=== PATIENT | female | born 1965 | race Caucasian/White ===

== ENCOUNTER 2018-07-19 11:18 | Day surgery (SDC) | payer OTHER ==
[2018-07-19] VITALS (13 sets, daily range): BP systolic 83–119; BP diastolic 40–84; PULSE 60–77; RESP 12–18; Ht 149.9 cm; Wt 71.9 kg
[~2018-07-19] VITALS: Ht 149.9 cm; Wt 71.9 kg
[2018-07-19] MEDS ORDERED: PRAV40TA76 PO (11:51)
[2018-07-19] MEDS ORDERED: HYDR25TA6 PO (11:52)
[2018-07-19] MEDS ORDERED: ATOR40TA68 PO (11:52)
[2018-07-19] MEDS ORDERED: AMLO-147 PO (11:53)
[2018-07-19] MEDS ORDERED: METF100010 PO (11:53)
[2018-07-19] MEDS ORDERED: ASPI81TA52 PO (11:54)
[2018-07-19] MEDS ORDERED: LISI40TA3 PO (11:55)
[2018-07-19] MEDS ORDERED: GLUCOSE GEL 15 GRAM TUBE BUCCAL PRN (12:30)
[2018-07-19] MEDS ORDERED: GLUCAGON 1 MG INJ IM PRN (12:30)
[2018-07-19] MEDS ORDERED: DEXTROSE 50% 50 ML SYRINGE IV PRN ×2 (12:30)
[2018-07-19] MEDS ORDERED: GLUCOSE GEL 15 GRAM TUBE PO PRN ×2 (12:30)
[2018-07-19] MEDS ORDERED: INSULIN ASPART [NOVOLOG] 3 ML PEN IV ONE (12:30)
[2018-07-19] MEDS ORDERED: CEFAZOLIN 2 GM/50 ML (PMX) 50 ML IVPB ONE (14:30)
--- NOTE | 2018-07-19 15:17 | HPN ---
Date/Time of Note Date/Time of Note DATE: 07/19/18 TIME: 15:17 Interval H&P Admission Note Pt. seen H&P reviewed: No system changes ROXIE MADRIGAL MD Jul 19, 2018 15:17
--- NOTE | 2018-07-19 15:27 | PREAC ---
Date/Time of Note Date/Time of Note DATE: 07/19/18 TIME: 15:25 Anesthesia Eval and Record Evaluation Time Pre-Procedure Interview DATE: 07/19/18 TIME: 15:25 Age 53 Sex female NPO: 8 hrs Preoperative diagnosis back and buttock masses Planned procedure excision of back and buttock masses Past Medical History Past Medical History: Includes Cardio: HTN, Dyslipidemia Endo: Diabetes GI: Obesity Surgery & Anesthesia Issues No known issue Meds Anticoagulation: No Beta Shanique within 24 hr: No Reason Beta Shanique not given: Pt. not on B-Shanique Reported Medications Lisinopril* (Lisinopril*) 40 Mg Tablet, 40 MG PO DAILY, #30 TAB 07/19/18 Aspirin (Low Dose Aspirin) 81 Mg Tablet.dr, 81 MG PO DAILY, #30 TAB 07/19/18 Metformin Hcl* (Metformin Hcl*) 1,000 Mg Tablet, 1000 MG PO WITH BREAKFAST DINNE, #60 TAB 07/19/18 Amlodipine Besylate* (Amlodipine Besylate*) 10 Mg Tablet, 10 MG PO DAILY, #30 TAB 07/19/18 Hydrochlorothiazide* (Hydrochlorothiazide*) 25 Mg Tab, 25 MG PO DAILY, #30 TAB 07/19/18 Atorvastatin* (Atorvastatin*) 40 Mg Tablet, 40 MG PO QHS, #30 TAB 07/19/18 Discontinued Reported Medications Pravastatin Sodium* (Pravastatin Sodium*) 40 Mg Tablet, 40 MG PO HS, TAB 07/19/18 Current Medications Miscellaneous Information 1 ea NOTE XX ; Start 07/19/18 at 12:30 Glucose (Glutose) 15 gm Q15M PRN PO DECREASED GLUCOSE; Start 07/19/18 at 12:30 Glucose (Glutose) 22.5 gm Q15M PRN PO DECREASED GLUCOSE; Start 07/19/18 at 12:30 Dextrose (D50w Syringe) 25 ml Q15M PRN IV DECREASED GLUCOSE; Start 07/19/18 at 12:30 Dextrose (D50w Syringe) 50 ml Q15M PRN IV DECREASED GLUCOSE; Start 07/19/18 at 12:30 Glucagon (Glucagen) 1 mg Q15M PRN IM DECREASED GLUCOSE; Start 07/19/18 at 12:30 Glucose (Glutose) 15 gm Q15M PRN BUCCAL DECREASED GLUCOSE; Start 07/19/18 at 12:30 Meds reviewed: Yes Allergies Coded Allergies: No Known Allergy (Unverified , 07/19/18) Allergies Reviewed: Yes Labs/Studies Labs Reviewed: Reviewed by anesthesiologist test: Negative Pre-procedure Exam Last vitals Vital Signs Date Temp Pulse Resp B/P (MAP) Pulse Ox O2 O2 Flow FiO2 Time Delivery Rate 07/19/18 98.0 77 16 119/84 98 Room Air 12:32 (96) Airway: Adequate mouth opening, Adequate thyromental dist Mallampati: Mallampati II Teeth: Normal Lung: Normal Heart: Normal ASA Physical Status ASA physical status: 2 Emergency: None Planned Anesthetic General/MAC: MAC Planned Pain Management Parenteral pain med Pre-operative Attestations Prior to commencing anesthesia and surgery, the patient was re-evaluated, there was verification of: *The patient's identity *The results of appropriate recent lab work and preoperative vital signs *The above evaluation not changing prior to induction *Anesthetic plan, risk benefits, alternative and complications discussed with patient/family; questions answered; patient/family understands, accepts and wishes to proceed. ELISABET DOVE Jul 19, 2018 15:27
[2018-07-19] MEDS ORDERED: MIDAZOLAM 1 MG/ML 2 ML INJ ONE (15:34)
[2018-07-19] MEDS ORDERED: FENTAnyl 50 MCG/ML VIAL ONE (15:34)
[2018-07-19] MEDS ORDERED: LIDOCAINE 1%/EPI (1:100,000) (MDV) 20 ML ONE (16:00)
[2018-07-19] MEDS ORDERED: BUPIVACAINE 0.25% (MPF) 30 ML INJ ONE (16:00)
[2018-07-19] MEDS ORDERED: PROPOFOL 20 ML ONE (16:13)
[2018-07-19] MEDS ORDERED: CEFAZOLIN 1 GM INJ ONE (16:13)
[2018-07-19] MEDS ORDERED: LIDOCAINE 2% (SDV) 5 ML INJ ONE (16:13)
[2018-07-19] MEDS ORDERED: BACITRACIN/POLYMYXIN 28.35 GM OINT TOP ONE (16:41)
--- NOTE | 2018-07-19 16:52 | PAC ---
Date/Time of Note Date/Time of Note DATE: 07/19/18 TIME: 16:52 Post-Anesthesia Notes Post-Anesthesia Note Last documented vital signs Vital Signs Date Temp Pulse Resp B/P (MAP) Pulse Ox O2 O2 Flow FiO2 Time Delivery Rate 07/19/18 98.0 77 16 119/84 98 Room Air 1652 (96) Activity: WNL Respiratory function: WNL Cardiovascular function: WNL Mental status: Baseline Pain reasonably controlled: Yes Hydration appropriate: Yes Nausea/Vomiting absent: Yes ELISABET DOVE Jul 19, 2018 16:52
[2018-07-19] MEDS ORDERED: OXYCODONE/ACETAMINOPHEN (5/325) TAB PO PRN ×2 (17:00)
[2018-07-19] MEDS ORDERED: ONDANSETRON 4 MG INJ IV PRN ×2 (17:00)
[2018-07-19] MEDS ORDERED: FENTAnyl 50 MCG/ML VIAL IV PRN ×3 (17:00)
[2018-07-19] MEDS ORDERED: ALBUTEROL 0.083% (NEB) 2.5 MG/3 ML AMP HHN PRN (17:00)
[2018-07-19] MEDS ORDERED: IBUPROFEN 600 MG TAB PO PRN (17:00)
[2018-07-19] MEDS ORDERED: MEPERIDINE 25 MG INJ IV PRN (17:00)
[2018-07-19] MEDS ORDERED: EPHEDrine SULFATE 50 MG/5 ML SYG IV PRN (17:00)
[2018-07-19] MEDS ORDERED: KETOROLAC 30 MG INJ IV PRN ×2 (17:00)
[2018-07-19] MEDS ORDERED: DIPHENHYDRAMINE 50 MG INJ IV PRN (17:00)
[2018-07-19] MEDS ORDERED: LABETALOL HCL 20MG INJ IV PRN (17:00)
[2018-07-19] MEDS ORDERED: hydrALAzine 20 MG INJ IV PRN (17:00)
--- NOTE | 2018-07-19 17:09 | OPR ---
Date/Time of Note Date/Time of Note DATE: 07/19/18 TIME: 16:57 Operative Report Procedure Date: Jul 19, 2018 Preoperative Diagnosis 1. Back mass 2. Gluteal mass Postoperative Diagnosis 1. Back mass 2. Gluteal mass Operation/Procedure Performed 1. Excision of back mass 2 cm 2. Excision of right gluteal mass 4 cm Surgeon see signature line End Maker None Anesthesia Type: MAC Anesthesiologist: ELISABET DOVE Estimated Blood Loss: minimal Transfusion none Specimen 1. Back mass 2. Gluteal mass Grafts/Implants none Complications none Pt Condition Post Procedure: stable Disposition: PACU Indications Patient is a 53-year-old diabetic female with obesity who presented to the office complaining of a mass of the mid back and right gluteal area. She reported growth and pain. She was scheduled for elective excision for symptom relief and definitive pathological diagnosis. All risks and benefits of the procedure including, but not limited to: Wound infection, excessive bleeding, postoperative seroma/hematoma formation, mass recurrence, etc. were all discussed discussed with the patient full detail. The patient fully understood and wished to proceed with the procedure. Informed consent was obtained. Procedure Description Patient was brought to the operating room and placed in the left lateral decubitus position on the operating room table with the right side up. Bilateral sequential compression devices were placed on both lower extremity's. The dose of broad-spectrum perioperative intravenous antibiotics was given. The back mass and right gluteal mass were both preoperatively marked and confirmed with the patient in the holding area. After the induction of adequate sedation the back and the gluteal area were prepped and draped in standard surgical fashion. Attention was first turned toward the back mass. After performance of the surgical timeout, a mixture of 0.25% Marcaine and 1% lidocaine with epinephrine was injected in a radial fashion around the mass creating a field block. An elliptical incision was then made using a 15 blade scalpel around the mass to encompass a punctate sinus opening in the middle of the mass. Incision was carried down through the skin and dermis. In the dermis a mass consistent with epidermal inclusion cyst was identified. The capsule was entered and sebum was expressed. The capsule was then circumferentially dissected from the surrounding tissues. It extended into the subcutaneous tissues. The capsule was then transected at its base and passed off the field as specimen. The mass measured approximately 2 cm in maximal dimension. The wound cavity was then ir rigated. Hemostasis was inspected for noted to be total. Incision was then reapproximated using interrupted 3-0 Vicryl sutures for the dermal layer and interrupted 3-0 nylon sutures for the skin. Attention was then turned toward the right gluteal mass. A mixture of 0.25% Marcaine and 1% lidocaine with epinephrine was injected in a radial fashion around the mass creating a field block. An incision was then made using a 15 blade scalpel over the mass and was carried down through the skin and dermis. In the dermis a mass consistent with epidermal inclusion cyst was identified. The capsule was entered and sebum was expressed. The capsule was then circumferentially dissected from the surrounding tissues. It extended into the deep subcutaneous tissues. The capsule was then transected at its base and passed off the field as specimen. The mass measured approximately 4 cm in maximal dimension. The wound cavity was then irrigated. Hemostasis was inspected for noted to be total. Incision was then reapproximated using interrupted 3-0 Vicryl sutures for the dermal layer and interrupted 3-0 nylon sutures for the skin. Further local anesthesia was then applied around both incision sites. Incisions were cleaned and Polysporin ointment was applied as well as sterile dressings. Patient was then awoken from anesthesia and transferred to recovery room in stable condition. All counts were correct at the end of the case x2 ROXIE MADRIGAL MD Jul 19, 2018 17:08
== END 2018-07-19 18:00 | disposition home or self-care (01) ==
LOC: SDS 11:18
PROVIDERS: ATTEND Surgery
DX: L72.0 Epidermal cyst (principal); E11.9 Type 2 diabetes mellitus without complications; I10 Essential (primary) hypertension; E78.5 Hyperlipidemia, unspecified; Z79.82 Long term (current) use of aspirin; Z79.84 Long term (current) use of oral hypoglycemic drugs
CPT/HCPCS: 11406; 82962; 88307; J0690; J1815; J1885; J2250; J3010; Z7512; Z7610